=== PATIENT | male | born 1985 | race Caucasian/White ===

== ENCOUNTER 2018-06-07 15:52 | Emergency (ER) | payer OTHER ==
[2018-06-07 16:05] VITALS: BP 145/86
[2018-06-07] MEDS ORDERED: NS 1,000 ML IV ONE (16:10)
--- NOTE | 2018-06-07 16:10 | EDPHY ---
H & P Stated Complaint: dx giarrdia and h pylori on abx back pain /episodes of lighthededness/abd p Time Seen by Provider: 06/07/18 16:10 HPI/ROS: CHIEF COMPLAINT: Lightheadedness, anxiety HISTORY OF PRESENT ILLNESS: The patient presents to the ED after an episode of lightheadedness and palpitations. The patient has been struggling with the symptoms intermittently over the past month. He currently is being treated for H pylori and Giardia under the care of planning technician and is on a number of antibiotics. The patient continues to have some sharp intermittent abdominal pain but has developed symptoms of intermittent flushing, lightheadedness and palpitations. The patient stop smoking marijuana several weeks ago. The patient does report that he is medicated some of his symptoms with more significant alcohol use. The patient denies any acute abdominal pain currently. He denies any chest pain or shortness of breath. The patient exercises frequently without any ischemic symptoms. There is no family history of significant arrhythmia or sudden . The patient was in the emergency department in [place] several weeks ago with similar symptoms. At that point time he underwent an extensive workup which was negative. REVIEW OF SYSTEMS: A comprehensive 10 point review of systems is otherwise negative aside from elements mentioned in the history of present illness. Source: Patient Exam Limitations: No limitations - Personal History Current Tetanus Diphtheria and Acellular Pertussis (TDAP): No - Medical/Surgical History Hx Asthma: No Hx Chronic Respiratory Disease: No Hx Diabetes: No Hx Cardiac Disease: No Hx Renal Disease: No Hx Cirrhosis: No Hx Alcoholism: No Hx HIV/AIDS: No Hx Splenectomy or Spleen Trauma: No Other PMH: h pylori giarrdia - Social History Smoking Status: Former smoker - Physical Exam Exam: General Appearance: Alert, no distress Eyes: Pupils equal and round no pallor or injection ENT, Mouth: Mucous membranes moist Respiratory: There are no retractions, lungs are clear to auscultation Cardiovascular: Regular rate and rhythm Gastrointestinal: Abdomen is soft and nontender, no masses, bowel sounds normal Neurological: A&O, normal motor function, normal sensory exam, normal cranial nerves Skin: Warm and dry, no rashes Musculoskeletal: Neck is supple nontender Extremities: symmetrical, full range of motion Psychiatric: Patient is oriented X 3, there is no agitation Constitutional: Initial Vital Signs Temperature (C) 36.6 C 06/07/18 16:01 Heart Rate 92 06/07/18 16:01 Respiratory Rate 19 06/07/18 16:01 Blood Pressure 145/86 H 06/07/18 16:01 O2 Sat (%) 98 06/07/18 16:01 O2 Delivery Mode Room Air Allergies/Adverse Reactions: No Known Allergies Allergy (Unverified 06/07/18 15:59) Home Medications: Medication Instructions Recorded Amoxicillin 06/07/18 CLARITHROMYCIN 06/07/18 Medical Decision Making - Diagnostics EKG Interpretation: EKG: Complete interpretation has been separately recorded in the [facility] archive. Summary impression: Sinus rhythm, rate 84 ED Course/Re-evaluation: The patient presents the emergency department with symptoms related to intermittent anxiety. The patient's symptoms are certainly precipitated by the antibiotics that he is on and likely binge alcohol use. The patient is not suicidal or homicidal. The patient's vital signs are stable. He has a benign abdominal examination. The patient has had recent laboratory studies which demonstrate no evidence of a metabolic derangement or anemia. The patient did have an abdominal ultrasound performed within the past 2 weeks which was also negative. In the department the patient is insightful about the fact that his symptoms are related to anxiety. We did discuss strategies for mitigating anxiety including meditation, avoiding excessive consumption of alcohol and potentially following up with his primary care provider if he continues to have ongoing refractory symptoms. The patient is comfortable with discharge at this point time. The patient is given customary aftercare instructions and return precautions. Differential Diagnosis: Differential diagnosis considered includes anxiety, dehydration, arrhythmia Departure - Departure Disposition: Home, Routine, Self-Care Clinical Impression: Anxiety Condition: Good Instructions: Anxiety (ED) Additional Instructions: 1. I recommend avoiding excess consumption of alcohol. 2. Return to the ED for severe pain, bloody stool, vomiting or other concerns. 3. Strategies for anxiety abatement as discussed in the emergency department. 4. Follow up with your primary care provider for any ongoing mild symptoms.
--- NOTE | 2018-06-07 16:51 | CPEKG ---
Test Reason : OPEN Blood Pressure : / mmHG Vent. Rate : 084 BPM Atrial Rate : 084 BPM P-R Int : 143 ms QRS Dur : 095 ms QT Int : 365 ms P-R-T Axes : 019 025 031 degrees QTc Int : 432 ms Sinus rhythm Confirmed by Donis Carias ([id number]) on 06/07/2018 4:49:58 PM Referred By: Donis Carias Confirmed By:Donis Carias
== END 2018-06-07 16:59 | disposition home or self-care (01) ==
DX: F41.9 Anxiety disorder, unspecified (principal); K29.90 Gastroduodenitis, unspecified, without bleeding; A07.1 Giardiasis [lambliasis]; Z79.2 Long term (current) use of antibiotics

== ENCOUNTER 2018-06-17 11:51 | Emergency (ER) | payer OTHER ==
--- NOTE | 2018-06-17 12:26 | EDPHY ---
H & P Stated Complaint: lower abdomnal pain readiating to back , nausea denies vomiting Time Seen by Provider: 06/17/18 12:22 HPI/ROS: HPI: This is a 32-year-old male who presents with Chief Complaint: lower abdominal pain radiating to back , nausea denies vomiting Location: Periumbilical Quality: Pain Duration: 45 min prior to arrival Signs and Symptoms: no fever, no nausea, no vomiting, no hematemesis, no blood in stool, no abdominal bloating, no diarrhea, no back pain, no urinary symptoms , no testicular/groin pain, no indigestion, no chest pain, no shortness of breath Timing: Acute, comes in waves Severity: Moderate Context: While sitting at his desk at work approximately 45 min prior to arrival patient developed sharp, constant umbilical pain that shot bilaterally around both flanks and into his back. Patient denies nausea, vomiting, diarrhea , fever, urinary symptoms. In March he traveled to [place] for snowboarding. He was diagnosed in April with Giardia and H pylori infection by Gastroenterology in [place]. He completed his last antibiotic for Giardia 3 days ago and triple therapy approximately a week and half ago for H pylori infection. Patient does admit to history of anxiety. Modifying Factors: Comment: ROS: A comprehensive 10 system review of systems is otherwise negative aside from elements mentioned in the history of present illness. MEDICAL/SURGICAL/SOCIAL HISTORY: Medical history: Generally healthy. Does not take any regular medications. Surgical history: Denies Social history: Former smoker. Family history noncontributory. CONSTITUTIONAL: Extremely well-appearing slightly anxious adult white male, awake and alert, no obvious distress HEENT: Atraumatic and normocephalic, PERRL, EOMI. Nares patent; no rhinorrhea; no nasal mucosal edema. Tympanic membranes clear. Oropharynx clear, no exudate and moist pink mucosa. Airway patent. No lymphadenopathy. No meningismus. Cardiovascular: Normal S1/S2, regular rate, regular rhythm, without murmur rub or gallop. PULMONARY/CHEST: Symmetrical and nontender. Clear to auscultation bilaterally. Good air movement. No accessory muscle usage. ABDOMEN: Soft, nondistended, mild tenderness to deep palpation umbilical area, no rebound, no guarding, no peritoneal signs, no masses or organomegaly. No CVAT. EXTREMITIES: 2/2 pulses, strength 5/5, no deformities, no clubbing, no cyanosis or edema. NEUROLOGICAL: no focal neuro deficits. GCS 15. SKIN: Warm and dry, no erythema. no rash. Good capillary refill. Source: Patient Exam Limitations: No limitations - Personal History Current Tetanus Diphtheria and Acellular Pertussis (TDAP): Yes - Medical/Surgical History Hx Asthma: No Hx Chronic Respiratory Disease: No Hx Diabetes: No Hx Cardiac Disease: No Hx Renal Disease: No Hx Cirrhosis: No Hx Alcoholism: No Hx HIV/AIDS: No Hx Splenectomy or Spleen Trauma: No Other PMH: h pylori giarrdia - Social History Smoking Status: Former smoker Constitutional: Initial Vital Signs Temperature (C) 36.8 C 06/17/18 11:57 Heart Rate 85 06/17/18 11:57 Respiratory Rate 16 06/17/18 11:57 Blood Pressure 147/97 H 06/17/18 11:57 O2 Sat (%) 98 06/17/18 11:57 O2 Delivery Mode Room Air Allergies/Adverse Reactions: No Known Allergies Allergy (Unverified 06/07/18 15:59) Home Medications: Medication Instructions Recorded NK [No Known Home Meds] 06/17/18 Medical Decision Making - Diagnostics Imaging Results: Imaging Impressions Abdomen CT 06/17/18 12:26 Impression: 1. Suggestion of mesenteric adenitis. 2. Otherwise, no acute abdominopelvic process by CT technique. Findings and recommendations discussed with Berna Garcia at 1404 hour, 2018. ED Course/Re-evaluation: Vital signs reviewed and stable upon arrival. No systemic signs. IV access, laboratory studies, CT abdomen and pelvis scan ordered 1310: Labs reviewed. No signs of leukocytosis/anemia/platelet dysfunction/NORMA/ elevated LFTs/electrolyte imbalance/pancreatitis. 1404: Called by radiologist, Dr. Mcfarland, who reports CT abdomen and pelvis scan shows some mild lymph nodes in the right lower quadrant consistent with mesenteric adenitis but no signs of appendicitis, no colitis, no obstruction. Reassessed patient and reassurance provided. He will follow up with his ict sales representative in [place]. This patient was seen under the supervision of my primary supervising physician. I evaluated care for this patient independently. Differential Diagnosis: Abdominal pain including but not limited to appendicitis, cholecystitis, gastritis and urinary tract infection. - Data Points Laboratory Results: Laboratory Results 06/17/18 12:32 06/17/18 12:32 06/17/18 06/17/18 12:32 12:32 WBC 7.13 10^3/uL 10^3/uL (3.80-9.50) RBC 5.12 10^6/uL 10^6/uL (4.40-6.38) Hgb 15.8 g/dL g/dL (13.7-17.5) Hct 45.1 % % (40.0-51.0) MCV 88.1 fL fL (81.5-99.8) MCH 30.9 pg pg (27.9-34.1) MCHC 35.0 g/dL g/dL (32.4-36.7) RDW 11.2 % L % (11.5-15.2) Plt Count 196 10^3/uL 10^3/uL (150-400) MPV 10.2 fL fL (8.7-11.7) Neut % (Auto) 55.8 % % (39.3-74.2) Lymph % (Auto) 28.9 % % (15.0-45.0) Craven % (Auto) 9.4 % % (4.5-13.0) Eos % (Auto) 4.5 % % (0.6-7.6) Baso % (Auto) 1.0 % % (0.3-1.7) Nucleat RBC Rel Count 0.0 % % (0.0-0.2) Absolute Neuts (auto) 3.98 10^3/uL 10^3/uL (1.70-6.50) Absolute Lymphs (auto) 2.06 10^3/uL 10^3/uL (1.00-3.00) Absolute Monos (auto) 0.67 10^3/uL 10^3/uL (0.30-0.80) Absolute Eos (auto) 0.32 10^3/uL 10^3/uL (0.03-0.40) Absolute Basos (auto) 0.07 10^3/uL 10^3/uL (0.02-0.10) Absolute Nucleated RBC 0.00 10^3/uL 10^3/uL (0-0.01) Immature Gran % 0.4 % % (0.0-1.1) Immature Gran # 0.03 10^3/uL 10^3/uL (0.00-0.10) Sodium 137 mEq/L mEq/L (135-145) Potassium 4.2 mEq/L mEq/L (3.5-5.2) Chloride 104 mEq/L mEq/L (97-110) Carbon Dioxide 25 mEq/l mEq/l (22-31) Anion Gap 8 mEq/L mEq/L (6-14) BUN 14 mg/dL mg/dL (7-23) Creatinine 1.0 mg/dL mg/dL (0.7-1.3) Estimated GFR > 60 Glucose 94 mg/dL mg/dL (70-100) Calcium 9.4 mg/dL mg/dL (8.5-10.4) Total Bilirubin 0.6 mg/dL mg/dL (0.1-1.4) Conjugated Bilirubin 0.2 mg/dL mg/dL (0.0-0.5) Unconjugated Bilirubin 0.4 mg/dL mg/dL (0.0-1.1) AST 28 IU/L IU/L (17-59) ALT 49 IU/L IU/L (21-72) Alkaline Phosphatase 77 IU/L IU/L (38-126) Total Protein 7.2 g/dL g/dL (6.3-8.2) Albumin 4.6 g/dL g/dL (3.5-5.0) Lipase 126 IU/L IU/L (23-300) Departure - Departure Disposition: Home, Routine, Self-Care Clinical Impression: Nonspecific mesenteric adenitis Condition: Good Instructions: Mesenteric Adenitis (ED) Additional Instructions: Consume a minimum of 8-10 glasses of water or electrolyte fluid replacement drinks that include Gatorade, Powerade, Pedialyte. Eat a bland diet for the next 48 hours and then slowly advance as tolerated. Continue to take probiotics as directed. Use [id number] simethicone or Gas-X as needed for abdominal gas pain. Follow-up with ict sales representative in [place]. Referrals: Ted Lerner MD [Primary Care Provider] - As per Instructions
[2018-06-17 12:45] LABS: PLATELET COUNT 196 10^3/uL (150-400)
[2018-06-17] MEDS ORDERED: IOPAMIDOL (ISOVUE-300) 100 ML BTL ONE (13:20)
[2018-06-17 14:25] VITALS: BP 143/91
== END 2018-06-17 14:25 | disposition home or self-care (01) ==
DX: I88.0 Nonspecific mesenteric lymphadenitis (principal)
CPT/HCPCS: Q9967